=== PATIENT | female | born 1955 | race Caucasian/White ===

== ENCOUNTER 2019-02-11 10:06 | Day surgery (SDC) | payer MEDICARE, BC ==
[~2019-02-11 10:06] MED LIST: Lactated Ringers 1,000 ML IV SCH
[2019-02-11] MEDS ORDERED: fentaNYL 100 MCG/2 ML SDV ONE (12:50)
[2019-02-11] MEDS ORDERED: Propofol 200 MG/20 ML SDV ONE ×3 (12:50→14:08)
--- NOTE | 2019-02-11 15:10 | OR ---
DATE OF SURGERY: 02/11/2019. REFERRING PROVIDER: Judy Iraheta PA-C. PRE-OPERATIVE DIAGNOSES: 1. Change in bowel habits with decreased stool caliber. 2. Positive family history of colon polyps in father. The patient's last colonoscopy was normal back in 2011. 3. Intermittent constipation. POST-OPERATIVE DIAGNOSES: 1. 3 polyps removed using cold forceps and part of 1 using cold snare. a. Appendiceal orifice polypoid tissue removed using cold snare as well as several bites of the cold forceps. This was about 6 mm in size, although difficult to access within the residual orifice (pt reports previous appendectomy at age 2). b. 2 mm cecal polyp removed with cold forceps. c. 2 mm polyp at 50 cm removed with cold forceps. 2. Tortuous colon. 3. Mild sigmoid diverticulosis. PROCEDURE: Colonoscopy with polypectomy x3. SURGEON: Tj Lopez M.D. ANESTHESIA: Monitored anesthesia care. BOWEL PREP: Fair on the right and good on the left. Priya is a 63-year-old female who was brought to the endoscopy suite after discussing risks and benefits of the procedure. Informed consent was obtained for conscious sedation and colonoscopy with or without biopsy and/or polypectomy. We also discussed possibility of missed lesions. Pre-procedure exam was unremarkable. IV, oxygen, and monitors were placed. The patient was placed in the left lateral decubitus position. Sedation was administered and a digital rectal exam was performed which was unremarkable. Colonoscope was passed into the rectum and slowly advanced all the way to the cecum. The patient did have a rather tortuous colon. Cecum was viewed and photographed. The appendiceal orifice appeared to have a polypoid tissue within it. This was removed using cold snare as well as several bites of the cold forceps. Cecum also revealed separate 2 mm polyp removed with cold forceps. The colonoscope was slowly withdrawn and the mucosa closely observed in a direct circumferential manner. The ascending colon was unremarkable. The transverse colon was unremarkable. The descending colon near the splenic flexure revealed 2 mm polyp at 50 cm, removed using cold forceps. The sigmoid colon revealed some mild diverticulosis. Retroflexion was performed and rectal mucosa was unremarkable. Scope was removed. The patient tolerated the procedure well. The patient was monitored until that baseline status. Discharge instructions were reviewed and the patient was discharged in good condition. COMPLICATIONS: None. TOTAL TIME: 42 minutes ESTIMATED BLOOD LOSS: 1 to 2 mL. RECOMMENDATIONS/FOLLOW-UP: We will await results of path report to determine ideal followup interval. I would like to kindly thank Judy Iraheta for this referral. DMB: 02/11/2019 14:43:32 MODL: 02/11/2019 15:04:17 /[id number]
== END 2019-02-11 16:25 | disposition home or self-care (01) ==
LOC: VM.SDS 10:06
PROVIDERS: ATTEND Family Medicine
DX: D12.0 Benign neoplasm of cecum (principal); D12.4 Benign neoplasm of descending colon; D12.1 Benign neoplasm of appendix; K57.30 Diverticulosis of large intestine without perforation or abscess without bleeding; K59.00 Constipation, unspecified; K63.89 Other specified diseases of intestine; E78.00 Pure hypercholesterolemia, unspecified; E66.9 Obesity, unspecified; Z88.8 Allergy status to other drugs, medicaments and biological substances; Z90.49 Acquired absence of other specified parts of digestive tract; Z68.30 Body mass index [BMI] 30.0-30.9, adult; Z87.891 Personal history of nicotine dependence; Z83.71 Family history of colonic polyps; Z79.899 Other long term (current) drug therapy
CPT/HCPCS: 36415; 45380; 45385; 84484; 88305; J2704; J3010; J7120; 45384